=== PATIENT | female | born 1985 | race Caucasian/White ===

== ENCOUNTER → 2021-06-29 | Outpatient (CLI) ==
[2021-06-29 16:10] LABS: BASOPHILS % (AUTO) 0 % (0-10); EOSINOPHILS # (AUTO) 0.1 10^3/uL (0.0-0.3); EOSINOPHILS % (AUTO) 1 % (0-10); HEMATOCRIT 40 % (35-52); HEMOGLOBIN 13.3 g/dL (11.5-16.0); LYMPHOCYTES # (AUTO) 2.5 10^3/uL (1.0-4.0); LYMPHOCYTES % (AUTO) 27 % (12-44); MEAN CORPUSCULAR HEMOGLOBIN 32 pg (25-34); MEAN CORPUSCULAR HGB CONC 33 g/dL (32-36); MEAN CORPUSCULAR VOLUME 95 fL (80-99); MEAN PLATELET VOLUME 11.3 fL (9.0-12.2); MONOCYTES # (AUTO) 0.7 10^3/uL (0.0-1.0); MONOCYTES % (AUTO) 7 % (0-12); NEUTROPHILS # (AUTO) 5.9 10^3/uL (1.8-7.8); NEUTROPHILS % (AUTO) 64 % (42-75); PLATELET COUNT 198 10^3/uL (130-400); WHITE BLOOD COUNT 9.3 10^3/uL (4.3-11.0)
[2021-06-29 16:20] LABS: BILIRUBIN,TOTAL 0.5 MG/DL (0.1-1.0); CALCIUM 9.5 MG/DL (8.5-10.1); CREATININE SERUM 0.72 MG/DL (0.60-1.30); POTASSIUM 3.6 MMOL/L (3.6-5.0); TOTAL PROTEIN 6.7 GM/DL (6.4-8.2)
[2021-06-30 00:18] LABS: HEPATITIS C ANTIBODY C Equivocal (Non-Reactive)
== END ==
LOC: LABNPT 15:49
PROVIDERS: ATTEND Obstetrics & Gynecology
DX: Z36.9 Encounter for antenatal screening, unspecified (principal)
CPT/HCPCS: 80053; 84443; 85025; 86703; 86762; 86780; 86803; 86850; 86900; 86901; 87088; 87340

== ENCOUNTER → 2021-10-05 | Outpatient (CLI) | payer OTHER ==
--- NOTE | 2021-10-05 16:04 | Diagnostic Imaging Report ---
INDICATION: 3rd trimester survey. TECHNIQUE: Multiple Real-time grayscale images were obtained over the gravid uterus. COMPARISON: None. FINDINGS: The anatomic survey is grossly unremarkable. The stomach, four-chamber heart, kidneys, bladder, three-vessel cord and the cord insertion are well seen. The spine and intracranial structures are grossly unremarkable. The placenta is posterior and low-lying. It resides approximately 1.3 cm away from the internal cervical os. The cervix is long and closed. It measures 5.5 cm in length. The maternal adnexa are unremarkable. The ovaries are not well visualized due to position. Biometrical measurements are as follows: Biparietal 4.44 cm, age 19 weeks 3 days. Head circumference 18.58 cm, age 21 weeks 0 days. Abdominal circumference 15.46 cm, age 20 weeks 5 days. Femur length 3.80 cm, age 22 weeks 2 days. Sonographic estimate age: 20 weeks 6 days. Sonographic estimated date of delivery: 02/16/2022. Clinical dates: 21 weeks and 2 days with estimated date of delivery of 02/13/2022. Estimated Weight: 408 gm (+/- 60 gm). LMP percentile: 41%. heart rate: 149 beats per minute. number: 1 of 1. IMPRESSION: 1. Single live intrauterine at approximately 20 weeks 6 days with an CAMILLE of 02/16/2022. These are concordant with clinical dates. No gross abnormalities are seen at this time. 2. Low-lying placenta. Dictated by: Dictated on workstation # [id number]
== END ==
LOC: RAD 11:32
PROVIDERS: ATTEND Nurse Practitioner Women's Health
DX: O44.42 Low lying placenta NOS or without hemorrhage, second trimester (principal); Z3A.20 20 weeks gestation of pregnancy
CPT/HCPCS: 76805

== ENCOUNTER → 2021-10-26 | Outpatient (CLI) | payer OTHER ==
--- NOTE | 2021-10-26 14:43 | Diagnostic Imaging Report ---
INDICATION: Follow up to evaluate vasa previa as well as to measure placental distance from the internal cervical os. TECHNIQUE: Multiple real-time grayscale images were obtained over the gravid uterus. COMPARISON: 10/05/2021. FINDINGS: There is a single live fetus in a cephalic presentation. heart rate was recorded at 140 BPM. Placenta is posterior and low lying. Placental tip to the internal cervical os is 2.1 cm. Cervical length is 6.3 cm. No vessels are seen covering the internal os. Amniotic fluid volume is normal. IMPRESSION: Limited obstetric ultrasound again demonstrating a low-lying posterior placenta. No vasa previa is seen. Dictated by: Dictated on workstation # [id number]
== END ==
LOC: RAD 09:55
PROVIDERS: ATTEND Nurse Practitioner Women's Health
DX: Z36.9 Encounter for antenatal screening, unspecified (principal); O44.40 Low lying placenta NOS or without hemorrhage, unspecified trimester; Z3A.00 Weeks of gestation of pregnancy not specified
CPT/HCPCS: 76816

== ENCOUNTER 2022-01-31 05:29 | Outpatient (CLI) | payer OTHER ==
[~2022-01-31] VITALS: Ht 157.5 cm; Wt 109.5 kg
[2022-01-31] MEDS ORDERED: DOCO200C4 PO (13:34)
[2022-01-31] MEDS ORDERED: ASPI-999 PO (13:34)
[2022-01-31] MEDS ORDERED: LEVO50CA4 PO (13:34)
== END 2022-01-31 13:44 | disposition home or self-care (01) ==
LOC: PREOP 05:29
PROVIDERS: ATTEND Obstetrics & Gynecology
DX: Z01.818 Encounter for other preprocedural examination (principal)

== ENCOUNTER 2022-02-07 05:33 | Inpatient (IN) | payer OTHER ==
[2022-02-07] VITALS (8 sets, daily range): BP systolic 85–137; BP diastolic 43–87
[~2022-02-07] VITALS: Ht 162.5 cm; Wt 108.5 kg
[~2022-02-07 05:33] MED LIST: ASPI-999 PO; DOCO200C4 PO; LEVO50CA4 PO
[2022-02-07] MEDS ORDERED: ceFAZolin INJECTION 1,000 MG in NS (IVPB) 50 ML IV ONE (05:45)
[2022-02-07] MEDS ORDERED: LACTATED RINGERS 1,000 ML IV PRN ×3 (05:45→06:45)
[2022-02-07 06:34] LABS: BASOPHILS % (AUTO) 0 % (0-10); EOSINOPHILS # (AUTO) 0.1 10^3/uL (0.0-0.3); EOSINOPHILS % (AUTO) 1 % (0-10); HEMATOCRIT 38 % (35-52); HEMOGLOBIN 13.1 g/dL (11.5-16.0); LYMPHOCYTES # (AUTO) 2.7 10^3/uL (1.0-4.0); LYMPHOCYTES % (AUTO) 20 % (12-44); MEAN CORPUSCULAR HEMOGLOBIN 31 pg (25-34); MEAN CORPUSCULAR HGB CONC 34 g/dL (32-36); MEAN CORPUSCULAR VOLUME 91 fL (80-99); MEAN PLATELET VOLUME 11.6 fL (9.0-12.2); MONOCYTES # (AUTO) 1.2 10^3/uL (0.0-1.0); MONOCYTES % (AUTO) 9 % (0-12); NEUTROPHILS # (AUTO) 9.2 10^3/uL (1.8-7.8); NEUTROPHILS % (AUTO) 69 % (42-75); PLATELET COUNT 177 10^3/uL (130-400); WHITE BLOOD COUNT 13.2 10^3/uL (4.3-11.0)
[2022-02-07] MEDS ORDERED: PREN-102 PO (06:34)
[2022-02-07] MEDS ORDERED: METOCLOPRAMIDE INJ 10 MG/2 ML (REGLAN) ONE (06:43)
[2022-02-07] MEDS ORDERED: CITRIC ACID/SOB CIT (BICITRA) 30 ML UDC ONE (06:43)
[2022-02-07] MEDS ORDERED: FAMOTIDINE 20MG/2ML IV (PEPCID) ONE (06:43)
[2022-02-07] MEDS ORDERED: CATHETER FLUSH 10 ML SYR IV PRN (06:45)
[2022-02-07] MEDS ORDERED: CITRIC ACID/SOB CIT (BICITRA) 30 ML UDC PO ONE (06:45)
[2022-02-07] MEDS ORDERED: FAMOTIDINE 20MG/2ML IV (PEPCID) IV ONE (06:45)
[2022-02-07] MEDS ORDERED: METOCLOPRAMIDE INJ 10 MG/2 ML (REGLAN) IV ONE (06:45)
[2022-02-07 06:47] LABS: ALBUMIN 3.2 GM/DL (3.2-4.5); BILIRUBIN,TOTAL 0.2 MG/DL (0.1-1.0); CALCIUM 8.8 MG/DL (8.5-10.1); CREATININE SERUM 0.58 MG/DL (0.60-1.30); POTASSIUM 3.5 MMOL/L (3.6-5.0); TOTAL PROTEIN 5.8 GM/DL (6.4-8.2)
[2022-02-07] MEDS ORDERED: fentaNYL INJ 100 MCG/2 ML AMP ONE (07:00)
[2022-02-07] MEDS ORDERED: OXYTOCIN PRE-MIX DRIP 1,000 ML IV ONE (07:00)
[2022-02-07] MEDS ORDERED: metroNIDAZOLE 500MG/100ML IVPB 100 ML ONE (07:02)
[2022-02-07] MEDS ORDERED: NS (IVPB) 50 ML ONE (07:02)
[2022-02-07] MEDS ORDERED: ceFAZolin INJECTION 1,000 MG ONE (07:02)
[2022-02-07] MEDS ORDERED: BUPIVACAINE 0.5% 30 ML (SENSORCAINE) VIAL ONE (07:08)
--- NOTE | 2022-02-07 07:22 | History & Physical-OB ---
OB - Chief Complaint & HPI Date/Time Date of Admission: Date of Admission: Feb 07, 2022 at 05:33 Date seen by a Provider: Feb 07, 2022 Time Seen by a Provider: 07:05 Chief Complaint/History OB-Reason for Admission/Chief: Section Hx : 2 Hx Para: 1 Expected Date of Delivery: Feb 13, 2022 Gestational Age in Weeks: 39 Gestational Age in Days: 1 Indication for : desires repeat Admission Nurse Assessment Rev: Yes History of Labs A neg Antibody neg RI RPR NR HBsAg NR HIV NR GC neg GBS pos Allergies and Home Medications Allergies Coded Allergies: acetaminophen (Verified Allergy, Unknown, HALLUC, 01/31/22) hydrocodone (Verified Allergy, Unknown, HALLUC, 01/31/22) Patient Home Medication List Home Medication List Reviewed: Yes Docosahexanoic Acid ( Dha) 200 Mg Capsule, 200 MG PO DAILY, (Reported) Entered as Reported by: TRAVIS SCHOFIELD on 01/31/221333 Last Action: Reviewed Levothyroxine Sodium (Levothyroxine) 50 Mcg Capsule, 50 MCG PO DAILY, (Reported) Entered as Reported by: TRAVIS SCHOFIELD on 01/31/221333 Last Action: Reviewed Vits #93/Iron Fum/FA ( Formula Tablet) 9 Mg Iron-267 Mcg Tablet, 1 EACH PO DAILY, (Reported) Entered as Reported by: RAMÓN ZHANG on 02/07/22 0634 Last Action: New Order Discontinued Medications Aspirin (Aspirin) 81 Mg Tab.chew, 81 MG PO DAILY, (Reported) Discontinued Reason: No Longer Taking Entered as Reported by: TRAVIS SCHOFIELD on 01/31/221333 Last Action: Discontinued OB - History Hx of Present Care: Yes Ultrasounds: Normal mid trimester US Obstetrical Complications: None Medical Complications: None Patient Past Medical History hypothyroidism Immunizations Influenza Vaccine Up-to-Date: Yes; Up-to-Date First/Initial COVID19 Vaccine: 2020 Second COVID19 Vaccination: 2020 Hepatitis A: Yes Hepatitis B: Yes OB - Admission Exam Physical Exam HEENT: NCAT Heart: Rhythm Normal Lungs: Clear Abdomen: Gravid Extremities: Normal Reflexes: Normal Heart Rate: 130's Accelerations: Accelerations Present Decelerations: No Decelerations Short Term Variability: Present Knife Changer Variability: Average (6-25) Contractions on Admission: >10 Minutes Apart Intensity: Mild Labs Laboratory Tests Test 02/07/22 06:10 Range/Units White Blood Count 13.2 H 4.3-11.0 10^3/uL Red Blood Count 4.18 3.80-5.11 10^6/uL Hemoglobin 13.1 11.5-16.0 g/dL Hematocrit 38 35-52 % Mean Corpuscular Volume 91 80-99 fL Mean Corpuscular Hemoglobin 31 25-34 pg Mean Corpuscular Hemoglobin Concent 34 32-36 g/dL Red Cell Distribution Width 13.3 10.0-14.5 % Platelet Count 177 130-400 10^3/uL Mean Platelet Volume 11.6 9.0-12.2 fL Immature Granulocyte % (Auto) 1 % Neutrophils (%) (Auto) 69 42-75 % Lymphocytes (%) (Auto) 20 12-44 % Monocytes (%) (Auto) 9 0-12 % Eosinophils (%) (Auto) 1 0-10 % Basophils (%) (Auto) 0 0-10 % Neutrophils # (Auto) 9.2 H 1.8-7.8 10^3/uL Lymphocytes # (Auto) 2.7 1.0-4.0 10^3/uL Monocytes # (Auto) 1.2 H 0.0-1.0 10^3/uL Eosinophils # (Auto) 0.1 0.0-0.3 10^3/uL Basophils # (Auto) 0.0 0.0-0.1 10^3/uL Immature Granulocyte # (Auto) 0.1 0.0-0.1 10^3/uL Sodium Level 139 135-145 MMOL/L Potassium Level 3.5 L 3.6-5.0 MMOL/L Chloride Level 108 H 98-107 MMOL/L Carbon Dioxide Level 20 L 21-32 MMOL/L Anion Gap 11 5-14 MMOL/L Blood Urea Nitrogen 6 L 7-18 MG/DL Creatinine 0.58 L 0.60-1.30 MG/DL Estimat Glomerular Filtration Rate 119 BUN/Creatinine Ratio 10 Glucose Level 94 70-105 MG/DL Calcium Level 8.8 8.5-10.1 MG/DL Corrected Calcium 9.4 8.5-10.1 MG/DL Total Bilirubin 0.2 0.1-1.0 MG/DL Aspartate Amino Transf (AST/SGOT) 9 5-34 U/L Alanine Aminotransferase (ALT/SGPT) 12 0-55 U/L Alkaline Phosphatase 97 40-136 U/L Total Protein 5.8 L 6.4-8.2 GM/DL Albumin 3.2 3.2-4.5 GM/DL OB - Assessment/Plan/Diagnosis Assessment Assessment: section Admission Dx 36 yo @ 39.1 Admission Status: Inpatient Order (span 2 midnights) Reason for Inpatient Admission: RLTCS Plan Plan: Section LAUREN BUSTOS DO Feb 07, 2022 07:22
[2022-02-07] MEDS ORDERED: PHENYLEPHRINE 100 MCG/ML 10 ML (ANESTHESIA) SYR ONE (07:25)
[2022-02-07] MEDS ORDERED: MEASLES,MUMPS,RUBELLA 1 EA INJ SQ ONE (07:30)
[2022-02-07] MEDS ORDERED: TETANUS,DIPTH,PERTUSS P/F (BOOSTRIX) 0.5 ML VIAL IM ONE (07:30)
[2022-02-07] MEDS ORDERED: DIBUCAINE 1% OINTMENT 30 GM TUBE TOP PRN (07:30)
[2022-02-07] MEDS ORDERED: NALOXONE 0.4 MG/ML 1 ML (NARCAN) VIAL IV PRN (07:30)
[2022-02-07] MEDS ORDERED: IBUPROFEN 600 MG (MOTRIN) TAB PO SCH (07:30)
[2022-02-07] MEDS ORDERED: WITCH HAZEL(TUCKS) 40 EA JAR TOP PRN (07:30)
[2022-02-07] MEDS ORDERED: BENZOCAINE/MENTHOL (DERMOPLAST) 56 ML CAN TP PRN (07:30)
[2022-02-07] MEDS ORDERED: metroNIDAZOLE 500MG/100ML IVPB 100 ML IV ONE (07:36)
[2022-02-07] MEDS ORDERED: metroNIDAZOLE 500MG/100ML IVPB 100 ML IV SCH (09:00)
[2022-02-07] MEDS: KETOROLAC 30 MG/ML VIAL IVP PRN ×3 (09:03→21:49)
[2022-02-07] MEDS: CATHETER FLUSH 10 ML SYR IV SCH ×2 (09:04→22:00)
[2022-02-07] MEDS: OXYTOCIN PRE-MIX DRIP 500 ML IV SCH ×2 (09:40→13:51)
--- NOTE | 2022-02-07 12:45 | OPERATIVE REPORT ---
PREOPERATIVE DIAGNOSES: 1. A 36-year-old at 39 weeks gestation. 2. Previous section. POSTOPERATIVE DIAGNOSES: 1. A 36-year-old at 39 weeks gestation. 2. Previous section. PROCEDURE: Repeat low transverse section. SURGEON: Jonathan Bustos DO [employer]: Terrell Cole DNP, who was necessary for manipulation and retraction throughout the procedure. ANESTHESIA: Spinal. ESTIMATED BLOOD LOSS: 500 mL. URINE OUTPUT: 200 mL clear at the end of the procedure. FLUIDS: 1600 mL lactated Ringer's solution. FINDINGS: A live female weighing 7 pounds 14 ounces, Apgars of 9 and 9. Grossly normal appearing uterus, fallopian tubes and ovaries. SPECIMEN SENT: None. INDICATIONS FOR PROCEDURE: This 36-year-old female, who sought care in my office, it was uncomplicated with exception for a desire for repeat . I discussed with the patient risks of the procedure in the preoperative area. After everything was discussed in detail including her hospital stay and recovery timeframe, consent was obtained preoperatively and the patient was taken to the operating room. DESCRIPTION OF PROCEDURE: Once in the operating room, spinal anesthesia was found to be adequate, was placed in supine position with leftward tilt, prepped and draped in normal sterile fashion. A timeout was performed. Anesthesia was tested. I then make a Pfannenstiel skin incision to the previously existing scar using a knife and carried down underlying fascia using Bovie cautery and the fascial incision extended laterally using Bovie cautery. The superior aspect of fascial incision was then grasped with Sony clamps, tented up and dissected off the underlying rectus muscles. The inferior aspect of the fascial incision was then grasped with Sony clamps, tented up and dissected off the underlying rectus muscles. The rectus muscles were dissected down the midline, which exposed the peritoneum, which I entered bluntly and extended using blunt traction. Once peritoneal access was obtained and blunt traction was used to open up the peritoneum. I placed an Josep ring retractor, which offered excellent lateral sidewall retraction. I identified the lower uterine segment, which was found to be thinned out. I make a low transverse incision to the vesicouterine peritoneum and bluntly dissected off the lower uterine segment, creating a bladder flap and then proceeded with myotomy until membranes were visualized, at which point I extended the uterine incision laterally and superiorly using bandage scissors. Amniotomy was then performed using Allis clamp. Clear fluid was noted. The was found in vertex presentation. With gentle fundal pressure, the infant's head was elevated up to the incision where it was delivered through the incision. The nares and oropharynx were bulb suctioned. The nuchal cord was reduced x1. Anterior and posterior shoulders were delivered. The infant was then brought to the operative field where the cord was doubly clamped and cut and the infant was handed off to waiting nurses in attendance. Cord blood was collected, 3-vessel cord with intact placenta delivered spontaneously thereafter. IV Pitocin was initiated to facilitate uterine contraction. Uterine fundus confirmed by manual massage. The uterus was then exteriorized and cleared of all endometrial clots and debris. I then proceeded with closing the uterine incision using 0 Vicryl suture in a running locked fashion. Second layer of imbricating 0 Monocryl was placed. Excellent hemostasis was noted after doing this. I then placed the uterus back in the pelvis and copiously irrigated the pelvis using normal saline. Once again, there was no active bleeding noted from any of my dissection planes. I placed Interceed antiadhesive over my low transverse incision. I removed the Josep ring retractor and then proceeded with closing the peritoneum using 3-0 Vicryl suture in running fashion. Rectus muscles reapproximated using 3-0 Vicryl suture in interrupted fashion. The fascia was reapproximated using 0 Vicryl suture in a running fashion. Subcutaneous tissue was reapproximated using 3-0 plain interrupted subcutaneous stitch and skin reapproximated using 4-0 Monocryl in a running subcuticular. Dermabond was applied to the incision and a bandage was placed over this as well. Two grams of Ancef were given preoperatively for infection prophylaxis. Job ID: [id number] DocumentID: [id number] Dictated Date: 02/07/2022 08:12:22 Shoe Puller Date: 02/07/2022 12:43:00 Dictated By: JONATHAN BUSTOS DO
[2022-02-07] MEDS: FERROUS SULF 325 MG (IRON) TAB PO SCH (12:56)
[2022-02-07] MEDS: DOCUSATE SODIUM 100 MG (COLACE) CAP PO SCH ×2 (12:56→21:49)
[2022-02-07] MEDS ORDERED: OXYTOCIN PRE-MIX DRIP 500 ML IV ONE (13:42)
[2022-02-08 01:00] VITALS: BP 120/60
[2022-02-08 04:52] VITALS: BP 124/69
[2022-02-08] MEDS: CATHETER FLUSH 10 ML SYR IV SCH (04:52)
[2022-02-08] MEDS: KETOROLAC 30 MG/ML VIAL IVP PRN ×2 (04:52→11:42)
[2022-02-08 06:19] LABS: BASOPHILS % (AUTO) 0 % (0-10); EOSINOPHILS # (AUTO) 0.2 10^3/uL (0.0-0.3); EOSINOPHILS % (AUTO) 1 % (0-10); HEMATOCRIT 35 % (35-52); LYMPHOCYTES # (AUTO) 2.3 10^3/uL (1.0-4.0); LYMPHOCYTES % (AUTO) 15 % (12-44); MEAN CORPUSCULAR HEMOGLOBIN 32 pg (25-34); MEAN CORPUSCULAR HGB CONC 35 g/dL (32-36); MEAN CORPUSCULAR VOLUME 92 fL (80-99); MEAN PLATELET VOLUME 11.6 fL (9.0-12.2); MONOCYTES # (AUTO) 1.3 10^3/uL (0.0-1.0); MONOCYTES % (AUTO) 8 % (0-12); NEUTROPHILS % (AUTO) 75 % (42-75); PLATELET COUNT 163 10^3/uL (130-400)
--- NOTE | 2022-02-08 08:11 | Anesthesia-Regional Post-Op ---
Regional Patient Condition Mental Status: Alert, Oriented x3 Circulation: Same as Pre-Op Headache: Absent Sensation: Full Recovery Motor Block: Absent Post Op Complications Complications None Follow Up Care/Instructions Patient Instructions None needed. Anesthesia/Patient Condition Patient is doing well, no complaints, stable vital signs, no apparent adverse anesthesia problems. No complications reported per nursing. D/C home per [facility] Criteria: Yes PAU VILLANUEVA CRNA Feb 08, 2022 08:11
--- NOTE | 2022-02-08 08:22 | Postpartum Progress Note ---
Note Note Day # 1 Subjective: Patient is without complaints. Ambulating, voiding. Tolerating a regular diet without nausea or vomiting. Normal lochia. Pain is well controlled with oral pain medications. Objective: Physical Exam: General - Alert and oriented, no apparent distress Abdomen - Soft, appropriately tender to palpation, non-distended, fundus firm at umbilicus Extremities - no edema, negative Charity's bilaterally Incision- c/d/i Assessment: POD 1 RLTCS Plan: Routine care. Encourage breast feeding. Encourage ambulation. Ferrous sulfate supplementation. Plan for discharge tomorrow Vitals - Labs Vital Signs - I&O Vital Signs Date Time Temp Pulse Resp B/P (MAP) Pulse Ox O2 Delivery O2 Flow Rate FiO2 02/08/22 04:52 36.0 85 18 124/69 (87) 97 Room Air 02/08/22 01:00 36.0 83 16 120/60 (80) 97 Room Air 02/07/22 21:49 36.4 72 16 122/74 (90) 97 Room Air 02/07/22 18:15 36.2 80 16 130/69 (89) 97 Room Air 02/07/22 12:45 36.9 80 16 125/62 (83) 97 Room Air 02/07/22 11:00 Room Air 02/07/22 09:20 36.4 65 16 117/87 (97) 96 Room Air 02/07/22 09:20 36.4 16 117/87 (97) 96 Room Air 02/07/22 09:05 36.1 16 85/69 (74) 96 Room Air 02/07/22 08:48 36.3 16 86/59 (68) 97 Room Air 02/07/22 08:33 36.7 16 95/43 (60) 94 Room Air I & O 02/08/22 07:00 Intake Total 2050 ml Output Total 1900 ml Balance 150 ml Labs Laboratory Tests 02/08/22 06:00: White Blood Count 16.0H, Red Blood Count 3.80, Hemoglobin 12.0, Hematocrit 35, Mean Corpuscular Volume 92, Mean Corpuscular Hemoglobin 32, Mean Corpuscular Hemoglobin Concent 35, Red Cell Distribution Width 13.4, Platelet Count 163, Mean Platelet Volume 11.6, Immature Granulocyte % (Auto) 1, Neutrophils (%) (Auto) 75, Lymphocytes (%) (Auto) 15, Monocytes (%) (Auto) 8, Eosinophils (%) (Auto) 1, Basophils (%) (Auto) 0, Neutrophils # (Auto) 12.0H, Lymphocytes # (Auto) 2.3, Monocytes # (Auto) 1.3H, Eosinophils # (Auto) 0.2, Basophils # (Auto) 0.0, Immature Granulocyte # (Auto) 0.1 LAUREN BUSTOS DO Feb 08, 2022 08:22
--- NOTE | 2022-02-08 08:23 | Discharge Inst-Women's Service ---
Discharge Inst-Women's Serv Depart Medication/Instructions New, Converted or Re-Newed RX: Transmitted to Pharmacy Final Diagnosis POD 2 RLTCS Problems Reviewed?: Yes Consults/Follow Up Additional Follow Up: Yes Orders/Referrals Dr. Hernandez in 7-10 days and in 6 weeks Activity Activity: Activity as Tolerated Driving Instructions: No Driving for 1 Week NO SMOKING: NO SMOKING Nothing Inside Vagina: No Douching, No [place], No Tampons Diet Discharge Diet: No Restrictions Symptoms to Report to : Bleeding Excessive, Pain Increased, Fever Over 101 Degrees F, Vaginal Bleeding Increase, Questions/Concerns For Any Problems or Questions: Contact Your Physician Skin/Wound Care Infection Signs and Symptoms: Increased Redness, Foul Odor of Wound, Increased Drainage, Skin Itchy or Has a Rash, Increased Swelling, Temperature Above 101 F Operative Area Clean and Dry: Keep Incision Clean/Dry Stitches/Pacific/Dermabond: Dermabond, Care of Stitches Bathing Instructions: LAUREN Chase DO Feb 08, 2022 08:23
[2022-02-08] MEDS ORDERED: IBUP-844 PO (08:25)
[2022-02-08] MEDS ORDERED: DOCU100C37 PO (08:25)
[2022-02-08] MEDS ORDERED: TRM50T PO (08:25)
[2022-02-08] MEDS ORDERED: FERR325T24 PO (08:25)
[2022-02-08] MEDS: DOCUSATE SODIUM 100 MG (COLACE) CAP PO SCH ×2 (09:36→21:38)
[2022-02-08] MEDS: FERROUS SULF 325 MG (IRON) TAB PO SCH (09:36)
[2022-02-08 09:39] VITALS: BP 123/64
[2022-02-08] MEDS ORDERED: IBUPROFEN 600 MG (MOTRIN) TAB PO ONE (19:15)
[2022-02-08 23:52] VITALS: BP 128/73
[2022-02-09] MEDS ORDERED: IBUPROFEN 600 MG (MOTRIN) TAB PO ONE (01:32)
[2022-02-09] MEDS: IBUPROFEN 600 MG (MOTRIN) TAB PO SCH ×2 (01:35→10:30)
[2022-02-09 05:55] VITALS: BP 128/67
--- NOTE | 2022-02-09 07:20 | Postpartum Progress Note ---
DEBRA MCGEE 02/09/22 0720: Note Note Day # 2 Subjective: Patient is without complaints. Ambulating, voiding. Tolerating a regular diet without nausea or vomiting. Normal lochia. Pain is well controlled with oral pain medications. Objective: Physical Exam: General - Alert and oriented, no apparent distress Abdomen - Soft, appropriately tender to palpation, non-distended, fundus firm at umbilicus Extremities - no edema, negative Charity's bilaterally Assessment: POD 2 RLTCS Recovering well, hemodynamically stable Plan: Routine care. Encourage breast feeding. Encourage ambulation. Ferrous sulfate supplementation. Plan for discharge today Vitals - Labs Vital Signs - I&O Vital Signs Date Time Temp Pulse Resp B/P (MAP) Pulse Ox O2 Delivery O2 Flow Rate FiO2 02/09/22 05:55 36.3 75 18 128/67 (87) 96 Room Air 02/08/22 23:52 36.4 82 18 128/73 (91) 99 Room Air 02/08/22 09:39 36.2 75 18 123/64 (83) 96 Room Air Labs Microbiology 02/07/22 MRSA Screen - Final, Complete MRSA not isolated LETA MOSQUEDA APRN 02/09/22 1011: Note Note In agreement w/assessment by medical student. Plan for discharge today. DEBRA MCGEE Feb 09, 2022 07:20 LETA MOSQUEDA APRN Feb 09, 2022 10:11
[2022-02-09 09:00] VITALS: BP 132/63
[2022-02-09] MEDS: FERROUS SULF 325 MG (IRON) TAB PO SCH (10:30)
[2022-02-09] MEDS: DOCUSATE SODIUM 100 MG (COLACE) CAP PO SCH (10:30)
[2022-02-12] MEDS ORDERED: IBUPROFEN 600 MG (MOTRIN) TAB PO SCH
== END 2022-02-09 15:25 | disposition home or self-care (01) | DRG 788 ==
LOC: LDRP 05:33
PROVIDERS: ADMIT Obstetrics & Gynecology; ATTEND Obstetrics & Gynecology
PROC: 10D00Z1 Extraction of Products of Conception, Low, Open Approach (ICD-10-PCS; principal; 2022-02-07 07:12)
DX: O34.211 Maternal care for low transverse scar from previous cesarean delivery (principal); Z3A.39 39 weeks gestation of pregnancy; Z37.0 Single live birth; O99.824 Streptococcus B carrier state complicating childbirth; O99.284 Endocrine, nutritional and metabolic diseases complicating childbirth
CPT/HCPCS: 36415; 80053; 83033; 85025; 86850; 86900; 86901; 87081; 94664